=== PATIENT | male | born 1935 | race Caucasian/White ===

== ENCOUNTER 2019-03-12 13:06 | Inpatient (IN) | payer OTHER ==
[~2019-03-12] VITALS: Ht 180.3 cm; Wt 75.5 kg
[2019-03-12] MEDS ORDERED: LOPRESSOR50 PO (13:17)
[2019-03-12] MEDS ORDERED: COZAAR 25 MG TA25 M1 PO (13:17)
[2019-03-12] MEDS ORDERED: HYDROCHLOROTHIA25 M2 PO (13:17)
[2019-03-12 13:26] LABS: ABSOLUTE BASOPHILS 0.1 thou/uL (0.0-0.2); ABSOLUTE LYMPHOCYTES 1.1 thou/uL (0.8-5.3); ABSOLUTE MONOCYTES 0.9 thou/uL (0.0-1.2); ABSOLUTE NEUTROPHILS 15.5 thou/uL (1.6-8.1); BASOPHILS 0.4 %; HEMATOCRIT 41.9 % (42.0-52.0); HEMOGLOBIN 13.9 gm/dL (14.0-18.0); LYMPHOCYTES 6.3 %; MCH 29.5 pg (26.0-34.0); MCHC 33.2 g/dL (28.0-37.0); MONOCYTES 4.9 %; MPV 7.9 fl. (7.2-11.1); NUCLEATED RBCS 0 /100WBC; PLATELET COUNT* 390 thou/uL (150-400); POLYS 88.4 %; RBC 4.71 mil/uL (4.50-6.00); WBC 17.5 thou/uL (4.0-11.0)
[2019-03-12 13:39] LABS: APTT 30.1 Seconds (25.0-31.3); INR 1.1
[2019-03-12 13:40] LABS: CALCIUM 8.3 mg/dL (8.5-10.1); CREATININE 1.4 mg/dL (0.6-1.3); POTASSIUM 4.1 mmol/L (3.5-5.1)
[2019-03-12 13:54] LABS: ALBUMIN 2.5 g/dL (3.4-5.0); CK-MB MASS 3.2 ng/mL (<0.5-3.6); TOTAL BILIRUBIN 0.7 mg/dL (<0.1-1.0); TOTAL PROTEIN 6.1 g/dL (6.4-8.2)
[2019-03-12 13:55] LABS: TROPONIN-I LEVEL 0.73 ng/mL (<0.06)
[2019-03-12 15:02] VITALS: BP 81/48
[2019-03-12 20:00] VITALS: BP 130/70
[2019-03-13] VITALS (8 sets, daily range): BP systolic 104–147; BP diastolic 50–90
[2019-03-13 03:10] LABS: GLYCOHEMOGLOBIN (HGB A1C) 5.5 % (4.8-5.6)
[2019-03-13 05:11] LABS: ABSOLUTE LYMPHOCYTES 1.4 thou/uL (0.8-5.3); ABSOLUTE MONOCYTES 0.8 thou/uL (0.0-1.2); ABSOLUTE NEUTROPHILS 9.1 thou/uL (1.6-8.1); BASOPHILS 0.3 %; EOSINOPHILS 0.2 %; HEMATOCRIT 36.5 % (42.0-52.0); LYMPHOCYTES 12.4 %; MCH 29.6 pg (26.0-34.0); MCHC 32.9 g/dL (28.0-37.0); MCV 90.1 fL (80.0-100.0); MPV 8.1 fl. (7.2-11.1); NUCLEATED RBCS 0 /100WBC; POLYS 80.1 %; RBC 4.05 mil/uL (4.50-6.00); RDW-CV 12.8 % (10.5-14.5); WBC 11.4 thou/uL (4.0-11.0)
[2019-03-13 05:23] LABS: PLATELET COUNT* 278 thou/uL (150-400)
[2019-03-13 05:24] LABS: CREATININE 1.2 mg/dL (0.6-1.3); POTASSIUM 3.5 mmol/L (3.5-5.1)
[2019-03-13 05:38] LABS: URINE BILIRUBIN NEGATIVE (Negative); URINE BLOOD NEGATIVE (Negative); URINE CLARITY CLEAR; URINE COLOR YELLOW; URINE GLUCOSE-RANDOM NEGATIVE (Negative); URINE KETONES NEGATIVE (Negative); URINE LEUKOCYTES-REFLEX NEGATIVE (Negative); URINE NITRITE-REFLEX NEGATIVE (Negative); URINE PROTEIN TRACE (Negative); URINE SPECIFIC GRAVITY 1.025 (1.005-1.030)
[2019-03-13 13:25] LABS: ALBUMIN 2.2 g/dL (3.4-5.0); CALCIUM 8.4 mg/dL (8.5-10.1); CREATININE 1.1 mg/dL (0.6-1.3); TOTAL BILIRUBIN 0.4 mg/dL (<0.1-1.0); TOTAL PROTEIN 4.8 g/dL (6.4-8.2)
[2019-03-13 13:29] LABS: POTASSIUM 4.5 mmol/L (3.5-5.1)
[2019-03-14] VITALS (7 sets, daily range): BP systolic 114–160; BP diastolic 66–80
[2019-03-14 04:31] LABS: CHOLESTEROL 124 mg/dL (<200); HDL CHOLESTEROL 23 mg/dL (>40); LDL CHOLESTEROL 83 mg/dL (<100); TC:HDL 5.4 Ratio (Not establshd); TRIGLYCERIDE 94 mg/dL (<150); VLDL 19 mg/dL (<40)
[2019-03-14 04:54] LABS: SERUM ASSESSMENT CLEAR
--- NOTE | 2019-03-14 12:10 | CON ---
[address] [address] CONSULTATION Name: JOSE MRAIA MORRIS Room: [address] ADM IN M.R.#: [id number] Admission: 03/12/19 Attend Phys: Alexei Leger MD Discharge: Date of : 37 Report #: [id number] THIS REPORT FOR: //name// CC: Alexei Leger [facility] physician/PCP Ramos Jones DO DATE OF SERVICE: 03/13/2019 CARDIOLOGY CONSULTATION HISTORY OF PRESENT ILLNESS: The patient is an 83-year-old white male, who I was asked to see in the hospital today after he was noted to be in atrial fibrillation. The patient has no previous history of heart disease. He stays fairly active, working in the yard. He states he was doing well until yesterday morning after breakfast, he felt lightheaded, short of breath. His brought him to the Emergency Room. He was found to be in atrial fibrillation. He was given IV Cardizem and converted to sinus rhythm. I was asked to see him for further evaluation and treatment. He denies history of myocardial infarction or chest pain. He denies previous history of exertional dyspnea. He has noted irregular heartbeat in the past, but no syncope. Denied any history of heart murmur. He has had no swelling. Denied recent fever or cough. PAST MEDICAL HISTORY: He has had a previous tonsillectomy, has a history of hypertension. MEDICATIONS: Include losartan, metoprolol, and hydrochlorothiazide. ALLERGIES: He has no known drug allergies. FAMILY HISTORY: Negative for heart disease. SOCIAL HISTORY: He is . [place] Quit smoking years ago, rarely drinks alcohol. REVIEW OF SYSTEMS: He has had no history of stroke, asthma, peptic ulcer disease, liver disease, kidney disease, cancer, psychiatric illness, chronic skin condition. PHYSICAL EXAMINATION: GENERAL: Elderly male, lying in bed, appeared in no distress. VITAL SIGNS: He had a blood pressure of 110/60, pulse is 70, he was afebrile. HEENT: Anicteric. Conjunctivae pink. Mucous members moist. NECK: Veins nondistended. No carotid bruits. Neck is supple. CHEST: Clear to auscultation. HEART: [place] [address] CONSULTATION Name: JOSE MARIA MORRIS Room: [address]#: [id number] Admission: 03/12/19 Attend Phys: Alexei Leger MD Discharge: Date of : 37 Report #: [id number] ABDOMEN: Soft. EXTREMITIES: Had no edema. Posterior pulse 2+ bilaterally. SKIN: Cool and dry. NEUROLOGIC: Nonfocal. LYMPH: No adenopathy. MUSCULOSKELETAL: No joint effusion. LABORATORY DATA: ECG on admission yesterday showed atrial fibrillation, rapid ventricular response rate. Currently, he appears to be in a sinus rhythm. His workup, he had a portable chest x-ray in the Emergency Room yesterday that showed normal heart size, small granuloma in the left base. Sodium 142, creatinine 1.2, glucose 119. Liver function studies were normal. Albumin 2.5. His troponin was 0.96. TSH 1.1. White blood cell count 9.4, hemoglobin 12.0. IMPRESSION AND RECOMMENDATIONS: 1. Type 2 myocardial infarction. Recommend nuclear stress test. 2. Atrial fibrillation. I will start sotalol and Eliquis. 3. Hypertension. The patient has been on an ARB, diuretic, and beta jorge. <ELECTRONICALLY SIGNED> By: Benedict Whitlock MD, FACC 03/14/19 1210 0905 [id number] Whitlock MD, FACC /nt
--- NOTE | 2019-03-14 12:29 | CON ---
[address] [address] CONSULTATION Name: JOSE MARIA MORRIS Room: [address] ADM IN M.R.#: [id number] Admission: 03/12/19 Attend Phys: Alexei Leger MD Discharge: Date of : 37 Report #: [id number] THIS REPORT FOR: //name// CC: Alexei Leger [facility] physician/PCP DATE OF SERVICE: 03/13/2019 HISTORY OF PRESENT ILLNESS: This is an 83-year-old male patient whom I tried to see to look for any neurological etiology for the patient's dizziness. This patient is pretty reluctant historian. He does not think anything wrong with him. I tried to explain to him the reason for neurological consultation and reason to get some workup done. He told me very clearly that he does not want any further neurological workup done. REVIEW OF SYSTEMS: He is admitted with some dizziness, but he also underplays that he does have history of atrial fibrillation and that is being addressed. He does have a history of hypertension. This is all the 14-point review of systems I could carry out. PAST MEDICAL HISTORY: Positive for atrial fibrillation. FAMILY HISTORY: Unremarkable. SOCIAL HISTORY: He does not smoke or drink alcohol. PHYSICAL EXAMINATION: I tried to carry out the examination and this patient is alert, responsive, oriented and he is competent to make his decision. I did not see any focal neurological deficit on the limited examination he allowed. It would appear that this patient had dizziness. He does need neurological workup starting with the CT and may be more neurological workup to see if he is having some silent stroke and if any one of them is new. But he is pretty adamant that he does not want any neurological workup done. I called back Dr. Leger, his admitting physician, and discussed that with him. He is competent to make his decision. He knows the consequences of not listening to the medical advice, but he is pretty adamant that he does not want any neurological workup to be done. Therefore, no official consultation was done and I will sign off. Please call if the situation changes. <ELECTRONICALLY SIGNED> By: Jesus Maher MD 03/14/19 1229 1233 [id number] luis Maher MD /nt
--- NOTE | 2019-03-14 14:17 | 2DMMODE ---
[place] [address] 2 D/M-MODE ECHOCARDIOGRAM Name: JOSE MARIA MORRIS Room: [address] IN M.R.#: [id number] Admission: 03/12/19 Attend Phys: Alexei Leger, Discharge: Date of : 37 Date of Service: 03/14/19 1417 Report #: [id number] THIS REPORT FOR: //name// APPROVED REPORT Study performed: 03/14/2019 11:07:16 EXAM: Comprehensive 2D, Doppler, and color-flow Echocardiogram Patient Location: Bedside BSA: 1.93 HR: 64 bpm BP: 160/67 mmHg Other Information Study Quality: Fair Indications Atrial Fibrillation 2D Dimensions IVSd: 7.94 (7-11mm) LVOT Diam: 19.12 (18-24mm) LVDd: 41.98 mm PWd: 9.29 (7-11mm) Ascending Ao: 31.23 (22-36mm) LVDs: 28.91 (25-40mm) Aortic Root: 28.87 mm Volumes Left Atrial Volume (Systole) LA ESV Index: 22.70 mL/m2 Aortic Valve AoV Peak Niko.: 1.10 m/s AO Peak Gr.: 4.81 mmHg LVOT Max P.71 mmHg AO Mean Gr.: 2.98 mmHg LVOT Mean P.94 mmHg LVOT Max V: 0.65 m/s AO V2 VTI: 23.48 cm LVOT Mean V: 0.44 m/s JARED (VTI): 1.78 cm2 LVOT V1 VTI: 14.52 cm Mitral Valve E/A Ratio: 0.96 MV Decel. Time: 217.55 ms MV E Max Niko.: 0.53 m/s MV PHT: 63.09 ms MVA (PHT): 3.49 cm2 [place] [address] 2 D/M-MODE ECHOCARDIOGRAM Name: JOSE MARIA MORRIS Room: [address] IN M.R.#: [id number] Admission: 03/12/19 Attend Phys: Alexei Leger, Discharge: Date of : 36 Date of Service: 03/14/19 1417 Report #: [id number] TDI E/Lateral E': 7.57 E/Medial E': 8.83 Medial E' Niko.: 0.06 m/s Lateral E' Niko.: 0.07 m/s Pulmonary Valve PV Peak Niko.: 0.70 m/s PV Peak Gr.: 1.94 mmHg Tricuspid Valve RAP Estimate: 5.00 mmHg TR Peak Gr.: 19.02 mmHg RVSP: 24.02 mmHg PA Pressure: 24.02 mmHg Left Ventricle The left ventricle is normal size. There is normal LV segmental wall motion. There is normal left ventricular wall thickness. Left ventricular systolic function is normal. The left ventricular ejection fraction is within the normal range. LVEF is 60%. Grade I - abnormal relaxation pattern. Right Ventricle Right ventricle is borderline dilated. The right ventricular systolic function is normal. Atria The left atrium size is normal. Right atrium is mildly dilated. Aortic Valve The aortic valve is normal in structure. No aortic regurgitation is present. There is no aortic valvular stenosis. Mitral Valve The mitral valve is normal in structure. Trace mitral regurgitation. No evidence of mitral valve stenosis. Tricuspid Valve The tricuspid valve is normal in structure. Trace tricuspid regurgitation. Pulmonic Valve The pulmonary valve is normal in structure. There is no pulmonic valvular regurgitation. [place] [address] 2 D/M-MODE ECHOCARDIOGRAM Name: JOSE MARIA MORRIS Room: [address] IN [facility]#: [id number] Admission: 03/12/19 Attend Phys: Alexei Leger, Discharge: Date of : 37 Date of Service: 03/14/19 1417 Report #: [id number] The aortic root is normal in size. IVC is borderline dilated. Pericardium There is no pericardial effusion. <Conclusion> The left ventricle is normal size. There is normal left ventricular wall thickness. Left ventricular systolic function is normal. The left ventricular ejection fraction is within the normal range. LVEF is 60%. Grade I - abnormal relaxation pattern. Right ventricle is borderline dilated. The right ventricular systolic function is normal. The left atrium size is normal. Right atrium is mildly dilated. The aortic valve is normal in structure. The mitral valve is normal in structure. Trace mitral regurgitation. The tricuspid valve is normal in structure. IVC is borderline dilated. There is no pericardial effusion. There is normal LV segmental wall motion. <ELECTRONICALLY SIGNED> By: Orlando Fuentes MD, [facility] 03/14/19 1417 1417 141 Orlando Fuentes MD, FACC /INF
--- NOTE | 2019-03-14 14:42 | EKG ---
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 : 1935 Requested By: Roc Palacio Order Number: [id number] MD: Ray Roberts Measurements Intervals [place] Rate: 142 P: MT: QRS: -75 QRSD: 94 T: 47 QT: 284 QTc: 437 Interpretive Statements Atrial fibrillation with rapid V-rate Ventricular premature complex Abnormal R-wave progression, early transition Inferior infarct, old No previous ECG available for comparison Electronically Signed On 03-14-2019 14:42:25 CDT by Ray Roberts [email or web address] <ELECTRONICALLY SIGNED> By: Ray Roberts MD, [facility] 03/14/19 1442 1312 11 Ray Roberts MD, [facility] /EPI
--- NOTE | 2019-03-14 14:53 | EKG ---
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1935 Requested By: Benedict Whitlock Order Number: [id number] Norm MD: Ray Roberts Measurements Intervals [place] Rate: 67 P: 73 [place]: 141 QRS: -64 QRSD: 100 T: -33 QT: 521 QTc: 550 Interpretive Statements Sinus rhythm Atrial premature complex Inferior infarct, old Abnormal T, consider ischemia, anterior leads Prolonged QT interval No previous ECG available for comparison Electronically Signed On 03-14-2019 14:53:23 CDT by Ray Roberts [email or web address] <ELECTRONICALLY SIGNED> By: Ray Roberts MD, [facility] 03/14/19 1453 9 9 Ray Roberts MD, [facility] /EPI
[2019-03-15] VITALS: BP 138/72
[2019-03-15 04:00] VITALS: BP 151/79
[2019-03-15 07:48] VITALS: BP 147/70
[2019-03-15] MEDS ORDERED: CARDIZEM CD 18180 M3 PO (15:02)
[2019-03-15] MEDS ORDERED: ELIQUIS5 MG PO (15:02)
[2019-03-15] MEDS ORDERED: ASPIR 8181 MG PO (15:03)
[2019-03-15 15:06] VITALS: BP 147/70
--- NOTE | 2019-03-15 16:00 | CARDNUC ---
[place] [address] CARDIAC NUCLEAR IMAGING REPORT Name: JOSE MARIA MORRIS Room: [address] IN [facility]#: [id number] Admission: 03/12/19 Attend Phys: Alexei Leger, Discharge: Date of : 37 Date of Service: 03/15/19 1559 Report #: [id number] THIS REPORT FOR: //name// APPROVED REPORT Study performed: 03/14/2019 17:53:00 Indication: Dyspnea, Dizziness. Patient Location: In-Patient Room #: 224 Stress Tech: Bernadette Arzola Stress Nurse: Nata Andersen RN Ht: 5 ft 10 in Wt: 169 lbs BSA: 1.94 m2 BMI: 24.24 Medical History Medical History: Arrhythmia, Atrial Fibrillation, CAD s/p PA, Diabetes, Former Smoker, HTN, SOB, Weakness, Dizziness. Medications: Eliquis, ASA 81 mg, Cardizem, Hydralazine, Insulin, Home Meds include HCTZ, Losartan, Metoprolol. Allergies: No known drug allergies Cardiac Risk Factors: Age, Diabetes (non-insulin), HTN, SOB, Tobacco History (Former). Previous Cardiac Procedures: Myocardial infarction Pretest Chest Pain Characteristics: No chest pain Exercise History: Indeterminate Physical Disabilities: Generalized weakness, dizziness. Meds Held (24 hrs): None Resting Data Rest SPECT myocardial perfusion imaging was performed in supine position 30 minutes following the intravenous injection of 11.9 mCi of Tc-99m Sestamibi. Time of rest injection: 09:00 The images were gated to evaluate regional wall motion and calculate left ventricular ejection fraction. Administration Route: IV Administration Site: Right AC Pharmacologic Stress Pharmacologic stress test was performed by injecting Regadenoson 0.4 mg IV push over 10-15 seconds immediately followed by the intravenous injection of 29.8 mCi of Tc-99m Sestamibi. Time of stress injection: 10:50 [place] [address] CARDIAC NUCLEAR IMAGING REPORT Name: JOSE MARIA MORRIS Room: [address] IN [facility]#: [id number] Admission: 03/12/19 Attend Phys: Alexei Leger, Discharge: Date of : 37 Date of Service: 03/15/19 1559 Report #: [id number] Administration Route: IV Administration Site: Right AC Heart Rate at time of stress injection: 71 bpm. Gated Stress SPECT was performed 45 minutes after stress injection. The images were gated to evaluate regional wall motion and calculate left ventricular ejection fraction. Prone imaging was performed. Stress Test Details Stress Test: Pharmacologic stress testing performed using 0.4 mg of regadenoson per 5 mL given IV over 10 seconds. HR Max Heart Rate (APMHR): 138 bpm Resting HR: 66 bpm Target HR (85% APMHR): 117 bpm Max HR Achieved: 80 bpm % of APMHR: 57 Recovery HR: 71 bpm BP Resting BP: 138/68 mmHg Max BP: 142/51 mmHg Recovery BP: 140/61 mmHg ECG Resting ECG: sinus rhythm with nonspecific T-wave inversion diffusely. No significant ST segment changes. Stress ECG: sinus rhythm with nonspecific T-wave inversion diffusely. No significant ST segment changes. ST Change: None Arrhythmia: None Recovery ECG: sinus rhythm with nonspecific T-wave inversion diffusely. No significant ST segment changes. Recovery ST Change: None Recovery Arrhythmia: None Clinical Reason for Termination: Completed protocol Stress Symptoms: Lightheaded, Dizziness, Dyspnea Exercise duration: 00 min 00 sec Exercise capacity: 1.00 METs The patient tolerated Lexiscan infusion without significant cardiac symptoms. Nurse Comments 83 year old male inpatient tolerated sitting Lexiscan [place] [address] CARDIAC NUCLEAR IMAGING REPORT Name: JOSE MARIA MORRISNE Room: [address]#: [id number] Admission: 03/12/19 Attend Phys: Alexei Leger, Discharge: Date of : 37 Date of Service: 03/15/19 1559 Report #: [id number] unremarkable with PO caffeine, effective. Patient escorted via wheelchair by staff to Nuclear Medicine for images. Patient was stable with no complaints at this time. Stress ECG Conclusion The baseline EKG show sinus rhythm with diffuse T-wave inversion. EKGs obtained during and post Lexiscan infusion show sinus rhythm with no significant ST segment changes when compared to baseline. There were no stress-induced arrhythmias. Study Quality Study: Good Artifact: No artifact Study Data At rest, the left ventricular ejection fraction was 69%.. Post stress, the left ventricular ejection was 75%.. TID = 1.01. Perfusion Normal left ventricular perfusion. Wall Motion Normal left ventricular wall motion. Nuclear Conclusion ECG Findings: negative for ischemia Clinical Findings: negative for ischemia Nuclear Findings: negative for ischemia Exercise Capacity: not assessed Left Ventricular Function: normal Risk Study: low Myocardial perfusion images show no defect to suggest infarct or ischemia. Left ventricular systolic function appears normal on gated studies. This is a low risk study. <Conclusion> The baseline EKG show sinus rhythm with diffuse T-wave inversion. EKGs obtained during and post Lexiscan infusion show sinus rhythm with no significant ST segment changes when compared to baseline. There were no stress-induced arrhythmias. <ELECTRONICALLY SIGNED> By: Ray Roberts MD, [facility] 03/15/19 1559 1559 1559 Ray Roberts MD, FACC /INF
== END 2019-03-15 16:20 | disposition home or self-care (01) | DRG 280 ==
LOC: M.ERS 13:06 → M.TBA-ER 14:14 → M.2W 14:14
PROVIDERS: Family Medicine; Internal Medicine Cardiovascular Disease; ADMIT Internal Medicine
DX: I21.A1 Myocardial infarction type 2 (principal); R65.11 Systemic inflammatory response syndrome (SIRS) of non-infectious origin with acute organ dysfunction; N17.9 Acute kidney failure, unspecified; I48.91 Unspecified atrial fibrillation; J44.9 Chronic obstructive pulmonary disease, unspecified; N18.2 Chronic kidney disease, stage 2 (mild); Z79.899 Other long term (current) drug therapy

== ENCOUNTER 2019-05-06 10:09 | Emergency (ER) | payer OTHER ==
[~2019-05-06] VITALS: Ht 175.3 cm; Wt 68.0 kg
[~2019-05-06 10:09] MED LIST: ASPIR 8181 MG PO; CARDIZEM CD 18180 M3 PO; COZAAR 25 MG TA25 M1 PO; ELIQUIS5 MG PO; HYDROCHLOROTHIA25 M2 PO; LOPRESSOR50 PO
[2019-05-06 10:40] LABS: ABSOLUTE BASOPHILS 0.1 thou/uL (0.0-0.2); ABSOLUTE MONOCYTES 0.8 thou/uL (0.0-1.2); ABSOLUTE NEUTROPHILS 10.2 thou/uL (1.6-8.1); BASOPHILS 0.5 %; EOSINOPHILS 0.1 %; HEMATOCRIT 37.9 % (42.0-52.0); HEMOGLOBIN 12.2 gm/dL (14.0-18.0); LYMPHOCYTES 8.5 %; MCHC 32.3 g/dL (28.0-37.0); MCV 89.7 fL (80.0-100.0); MONOCYTES 6.5 %; MPV 7.9 fl. (7.2-11.1); NUCLEATED RBCS 0 /100WBC; PLATELET COUNT* 451 thou/uL (150-400); POLYS 84.4 %; RBC 4.23 mil/uL (4.50-6.00); RDW-CV 15.1 % (10.5-14.5); WBC 12.1 thou/uL (4.0-11.0)
[2019-05-06 10:48] LABS: ANION GAP 9 mmol/L (7-16); BUN 15 mg/dL (7-18); CHLORIDE 104 mmol/L (98-107); CO2 23 mmol/L (21-32); CREATININE 1.2 mg/dL (0.6-1.3); GLUCOSE 182 mg/dL (70-99); POTASSIUM 4.4 mmol/L (3.5-5.1); SODIUM 136 mmol/L (136-145)
[2019-05-06 10:58] LABS: ALBUMIN 2.2 g/dL (3.4-5.0); ALKALINE PHOSPHATASE 248 U/L (46-116); NT-PRO BRAIN NAT PEPTIDE 2415 pg/mL (<300); SGOT 24 U/L (15-37); SGPT 19 U/L (30-65); TOTAL BILIRUBIN 0.6 mg/dL (<0.1-1.0); TOTAL PROTEIN 5.4 g/dL (6.4-8.2); TROPONIN-I LEVEL <0.06 ng/mL (<0.06)
[2019-05-06] MEDS ORDERED: METOPROLOL SUC100 MG PO (11:55)
[2019-05-06 13:08] VITALS: BP 140/57
--- NOTE | 2019-05-06 20:14 | EKG ---
[place] [address] ELECTROCARDIOGRAM REPORT Name: ARTUROJOSE MARIAMELISSA COOL Room: [facility]#: [id number] Admission: 05/06/19 Attend Phys: Discharge: 05/06/19 Date of : 36 Report #: [id number] THIS REPORT FOR: //name// [facility] ED Test Date: 2019-05-06 Test Time: 10:15:29 Pat Name: JOSE MARIA MORRIS Department: Room: Gender: M [employer] Former: mateus : 1935 Requested By: Morro Hager Order Number: [id number] MD: Dexter Kay Measurements Intervals [place] Rate: 109 P: 62 [place]: 130 QRS: -61 QRSD: 92 T: 35 QT: 323 QTc: 436 Interpretive Statements Sinus tachycardia with irregular rate Inferior infarct, old Compared to ECG 03/14/2019 09:20:34 Sinus rhythm no longer present Atrial premature complex(es) are present T-wave abnormality no longer present Possible ischemia no longer present Prolonged QT interval no longer present Myocardial infarct finding still present Electronically Signed On 05-06-2019 20:13:48 CDT by Dexter Kay [email or web address] <ELECTRONICALLY SIGNED> By: Malinda Kay MD, [facility] 05/06/192012 1015 1015 Malinda Kay MD, [facility] /EPI
== END 2019-05-06 13:09 | disposition home or self-care (01) ==
LOC: M.ERS 10:09
PROVIDERS: Emergency Medicine Emergency Medical Services
DX: R00.2 Palpitations (principal); I10 Essential (primary) hypertension; I48.91 Unspecified atrial fibrillation

== ENCOUNTER 2019-05-27 10:29 | Emergency (ER) | payer OTHER ==
[~2019-05-27] VITALS: Ht 172.7 cm; Wt 68.0 kg
[~2019-05-27 10:29] MED LIST changes: +METOPROLOL SUC100 MG PO
[2019-05-27 11:04] LABS: ABSOLUTE LYMPHOCYTES 1.1 thou/uL (0.8-5.3); ABSOLUTE MONOCYTES 0.9 thou/uL (0.0-1.2); BASOPHILS 0.3 %; HEMOGLOBIN 11.4 gm/dL (14.0-18.0); LYMPHOCYTES 9.5 %; MCH 29.3 pg (26.0-34.0); MCHC 33.5 g/dL (28.0-37.0); MCV 87.4 fL (80.0-100.0); MONOCYTES 7.2 %; MPV 8.4 fl. (7.2-11.1); NUCLEATED RBCS 0 /100WBC; PLATELET COUNT* 390 thou/uL (150-400); RBC 3.89 mil/uL (4.50-6.00); RDW-CV 14.9 % (10.5-14.5)
[2019-05-27 11:13] LABS: CALCIUM 8.2 mg/dL (8.5-10.1); POTASSIUM 3.7 mmol/L (3.5-5.1)
[2019-05-27 11:18] LABS: ALBUMIN 1.9 g/dL (3.4-5.0); TOTAL BILIRUBIN 0.8 mg/dL (<0.1-1.0)
[2019-05-27] MEDS ORDERED: BENTYL 20 MG TA20 M1 PO (11:31)
[2019-05-27 11:50] VITALS: BP 140/60
== END 2019-05-27 12:03 | disposition home or self-care (01) ==
LOC: M.ERS 10:29
PROVIDERS: Emergency Medicine
DX: R19.7 Diarrhea, unspecified (principal); I10 Essential (primary) hypertension; I48.91 Unspecified atrial fibrillation

== ENCOUNTER 2019-06-14 20:15 | Inpatient (IN) | payer OTHER ==
[~2019-06-14] VITALS: Ht 172.7 cm; Wt 72.5 kg
--- NOTE | ~2019-06-14 | PROC ---
[address] [address] PROCEDURE REPORT Name: JOSE MARIA MORRIS Room: [address] ADM IN M.R.#: [id number] Admission: 06/14/19 Attend Phys: Vivek Bolaños MD Discharge: Date of : 36 Report #: [id number] THIS REPORT FOR: //name// For GI report, please see the Provation report in Perceptive 7 content. By: 0648Medical Records Staff KASSIDY /CAITLIN
[~2019-06-14 20:15] MED LIST changes: +BENTYL 20 MG TA20 M1 PO
[2019-06-14 20:26] VITALS: BP 100/43
[2019-06-14 20:54] LABS: HEMATOCRIT 37.5 % (42.0-52.0); HEMOGLOBIN 12.2 gm/dL (14.0-18.0); MCH 28.5 pg (26.0-34.0); MCHC 32.6 g/dL (28.0-37.0); MCV 87.4 fL (80.0-100.0); MPV 8.9 fl. (7.2-11.1); NUCLEATED RBCS 0 /100WBC; PLATELET COUNT* 345 thou/uL (150-400); RBC 4.29 mil/uL (4.50-6.00); RDW-CV 15.6 % (10.5-14.5); WBC 16.5 thou/uL (4.0-11.0)
[2019-06-14 21:04] LABS: CALCIUM 7.9 mg/dL (8.5-10.1); CREATININE 4.1 mg/dL (0.6-1.3); POTASSIUM 5.2 mmol/L (3.5-5.1)
[2019-06-14 21:15] LABS: ALBUMIN 1.7 g/dL (3.4-5.0); INR 1.9; PROTIME 19.5 Seconds (9.20-11.50); TOTAL BILIRUBIN 1.7 mg/dL (<0.1-1.0); TOTAL PROTEIN 5.1 g/dL (6.4-8.2); TROPONIN-I LEVEL 0.09 ng/mL (<0.06)
[2019-06-14 21:44] LABS: ABSOLUTE LYMPHOCYTES 0.7 thou/uL (0.8-5.3); ABSOLUTE NEUTROPHILS 15.8 thou/uL (1.6-8.1)
[2019-06-14 21:45] LABS: PLATELET ESTIMATE ADEQUATE
--- NOTE | 2019-06-14 22:00 | NUR ---
AED PADS PLACED PER DR BALTAZAR INSTRUCTIONS. DR ARRIAGA DISCUSSED WITH PT AND ABOUT THE POSSIBILITY OF HAVIGN TO CARDIOVERT, PT AGREED.
[2019-06-15] VITALS (69 sets, daily range): BP systolic 83–129; BP diastolic 29–60
--- NOTE | 2019-06-15 03:40 | NUR ---
SMALL, BLOODY EMESIS AT THIS TIME. ZOFRAN GIVEN FOR NAUSEA. PATIENT DENIES PAIN.
[2019-06-15 05:35] LABS: HEMATOCRIT 33.5 % (42.0-52.0); HEMOGLOBIN 10.6 gm/dL (14.0-18.0); MCH 27.6 pg (26.0-34.0); MCHC 31.7 g/dL (28.0-37.0); MPV 8.8 fl. (7.2-11.1); RBC 3.85 mil/uL (4.50-6.00); WBC 18.9 thou/uL (4.0-11.0)
[2019-06-15 06:07] LABS: CALCIUM 7.3 mg/dL (8.5-10.1); CREATININE 3.3 mg/dL (0.6-1.3); MAGNESIUM 2.5 mg/dL (1.8-2.4); POTASSIUM 4.7 mmol/L (3.5-5.1)
--- NOTE | 2019-06-15 06:09 | NUR ---
PATIENT A$OX4, DENIES PAIN. BLOODY EMESIS X2, SMALL-MODERATE AMOUNT. UOP 30CC PER URINAL, NO BM THIS EVENING. HR IN 130s, SOMETIMES 140s, SINUS TACH PER EKG. LOWEST MAP 56, MAP >65 ONCE CARDIZEM GTT STOPPED, LEVO ON STANDBY PRN. PT ON 2L WITH SPO2 >95% ON ARRIVAL, NOW ON 5L WITH SPO2 90-92%. EDEMA TO LOWER EXTREMITIES, WORSE ON LEFT FOOT/ANKLE. SMALL NON-BLANCHABLE WOUND TO COCCYX ON ARRIVAL, PICTURE IN CHART, Q2 TURNS FOR SKIN INTEGRITY.
[2019-06-15] MEDS ORDERED: TOPROL XL100 MG PO (07:19)
[2019-06-15 07:51] LABS: URINE BLOOD 2+ (Negative); URINE CLARITY CLEAR; URINE COLOR BROWN; URINE GLUCOSE-RANDOM NEGATIVE (Negative); URINE KETONES NEGATIVE (Negative); URINE LEUKOCYTES-REFLEX NEGATIVE (Negative); URINE NITRITE-REFLEX NEGATIVE (Negative); URINE PROTEIN TRACE (Negative); URINE SPECIFIC GRAVITY >= 1.030 (1.005-1.030)
[2019-06-15 07:55] LABS: PROTIME 19.6 Seconds (9.20-11.50)
[2019-06-15 08:07] LABS: ICTOTEST (BILI CONFIRMATORY) Negative (Negative); URINE BILIRUBIN 1+ (Negative)
[2019-06-15 08:11] LABS: BACTERIA-REFLEX 1-9 Few /HPF (None Seen); SQUAMOUS >10 Many /LPF (0-3); URINE RBC 3-10 Few /HPF (0-2); URINE WBC-REFLEX 0-5 Rare /HPF (0-5)
[2019-06-15 08:12] LABS: HYALINE CASTS >10 Many /LPF (None Seen); MUCUS >6 Heavy strn/LPF (None Seen); WAXY CAST 0-3 Few /LPF (None Seen)
[2019-06-15 08:13] LABS: AMORPHOUS URATES Moderate /LPF (None Seen)
[2019-06-15 08:17] LABS: DIRECT BILIRUBIN 1.3 mg/dL (<0.1-0.3); TOTAL BILIRUBIN 1.6 mg/dL (<0.1-1.0)
--- NOTE | 2019-06-15 10:28 | EKG ---
[place] [address] ELECTROCARDIOGRAM REPORT Name: ARTUROJOSE MARIA SILVINA Room: [address] ADM IN M.R.#: [id number] Admission: 06/14/19 Attend Phys: Vivek Bolaños MD Discharge: Date of : 37 Report #: [id number] THIS REPORT FOR: //name// [facility] ED Test Date: 2019-06-14 Test Time: 20:24:13 Pat Name: JOSE MARIA MORRIS Department: Room: [address] Gender: M [place] [employer] Justice: : 1935 Requested By: Vivek Bolaños Order Number: [id number] Norm MD: Benedict Whitlock Measurements Intervals [place] Rate: 165 P: GA: QRS: 260 QRSD: 91 T: QT: 301 QTc: 499 Interpretive Statements Atrial fibrillation with rapid V-rate low voltage Consider inferior infarct Anterolateral infarct, age indeterminate Compared to ECG 05/06/2019 10:15:29 Sinus tachycardia no longer present Myocardial infarct finding still present Electronically Signed On 06-15-2019 10:28:22 CDT by Benedict Whitlock [email or web address] <ELECTRONICALLY SIGNED> By: Benedict Whitlock MD, [facility] 06/15/19 1028 23 23 Benedict Whitlock MD, [facility] /EPI
--- NOTE | 2019-06-15 10:32 | EKG ---
[place] [address] ELECTROCARDIOGRAM REPORT Name: JOSE MARIA MORRIS Room: [address] ADM IN M.R.#: [id number] Admission: 06/14/19 Attend Phys: Vivek Bolaños MD Discharge: Date of : 37 Report #: [id number] THIS REPORT FOR: //name// [facility] ED Test Date: 2019-06-14 Test Time: 22:25:34 Pat Name: JOSE MARIA MORRIS Department: Room: [facility] Gender: M [place]: AW : 1935 Requested By: Paola Carney Order Number: [id number] MD: Benedict Whitlock Measurements Intervals [place] Rate: 132 P: 0 [place]: QRS: -78 QRSD: 75 T: 267 QT: 225 QTc: 334 Interpretive Statements atrial fibrillation low voltage Abnormal R-wave progression, early transition Inferior infarct, age indeterminate Lead(s) aVR were not used for morphology analysis Electronically Signed On 06-15-2019 10:31:51 CDT by Benedict Whitlock [email or web address] <ELECTRONICALLY SIGNED> By: Benedict Whitlock MD, [facility] 06/15/19 1031 24 24 Benedict Whitlock MD, [facility] /EPI
--- NOTE | 2019-06-15 10:45 | NUR ---
PT.SLEEPING. SPOKE WITH PT.'S ,STUART. SHE SAID PT.HAD BEEN DOING OK UP UNTIL MARCH. HAS CHRONIC AFIB. SEES DR.ALLISON ROGEL FOR HIS PCP AND [facility]. WAS INDEPENDENT AT HOME. NO USE OF DME. WAS ABLE TO DO YARD WORK UP UNTIL ABOUT 6 WEEKS AGO. HAS GOTTEN VERY WEAK SINCE THEN. SAID SHE HAS A CANE AND WALKER HE CAN USE IF NEEDED. NO HX OF HH OR SNF.
[2019-06-15 12:08] LABS: HEMATOCRIT 31.4 % (42.0-52.0); HEMOGLOBIN 10.3 gm/dL (14.0-18.0)
[2019-06-15 12:15] LABS: AMMONIA 22 umol/L (11-32); LIPASE 22 U/L (73-393)
--- NOTE | 2019-06-15 14:08 | CON ---
[address] [address] CONSULTATION Name: ARTUROJOSE MARIA COOL Room: [address] ADM IN M.R.#: [id number] Admission: 06/14/19 Attend Phys: Vivek Bolaños MD Discharge: Date of : 36 Report #: [id number] THIS REPORT FOR: //name// CC: Eva Bolaños DATE OF SERVICE: 06/15/2019 CARDIOLOGY CONSULTATION HISTORY OF PRESENT ILLNESS: The patient is an 83-year-old white male who I was asked to see in the hospital today after he was noted to be in atrial fibrillation. The history was obtained from the old records as well as the patient. There are no family members available. He was actually admitted here to [facility] in 02/2019 with lightheadedness. He was found to be in atrial fibrillation. He had a long history of hypertension. I actually saw him in consultation at that time. He had been on losartan, metoprolol, and hydrochlorothiazide for hypertension. He converted to sinus rhythm. He was started on sotalol, but developed QT prolongation and was taken off of sotalol. He was started on diltiazem and Eliquis. His workup included an echocardiogram in February that showed ejection fraction of 60% and no significant valvular disease. He actually underwent a nuclear stress test because of an abnormal troponin that showed ejection fraction of 75% with normal perfusion. The patient presented to the Emergency Room last night complaining of being weak and short of breath. He has had edema and loose stools. Paramedics were called, and he was brought here to [facility]. On admission, he had an episode of atrial fibrillation with rapid ventricular response rate. He was started on IV diltiazem, but developed hypotension. He was given IV digoxin. He denies recent chest pain, fever, or cough. PAST MEDICAL HISTORY: Otherwise significant for tonsillectomy. He has a history of hypertension. ALLERGIES: He has no known drug allergies. FAMILY HISTORY: Negative for heart disease. SOCIAL HISTORY: He is . He and his live in [place]. He quit smoking years ago and rarely drinks alcohol. 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 REVIEW OF SYSTEMS: No history of stroke, asthma, peptic ulcer disease, liver disease, kidney disease, cancer, psychiatric illness, and chronic skin condition. MEDICATIONS: His medications on admission consisted of losartan, Eliquis, [place] [address] CONSULTATION Name: JOSE MARIA MORRIS Room: [address] IN [facility]#: [id number] Admission: 06/14/19 Attend Phys: Vivek Bolaños MD Discharge: Date of : 36 Report #: [id number] PHYSICAL EXAMINATION: GENERAL: Revealed an elderly male, lying in bed. He appeared in no acute distress. VITAL SIGNS: Blood pressure is only 160s. Pulse is 80. HEENT: He was anicteric. Conjunctivae are pink. Mucous membranes appear moist. NECK: Neck veins do not appear distended. CHEST: Clear to auscultation. CARDIOVASCULAR: Regular rate and rhythm. ABDOMEN: Soft. EXTREMITIES: Had 1+ edema. SKIN: Cool and dry. NEUROLOGIC: Nonfocal. DIAGNOSTIC DATA: His ECG on admission actually showed a sinus rhythm. However, during the night, he developed atrial fibrillation with rapid ventricular response rate. His 12-lead ECG showed atrial fibrillation with rapid ventricular response rate and low voltage. The rhythm strips appeared to show atrial flutter with a rapid ventricular response. His workup last night, he had a portable chest x-ray done in the Emergency Room last night that showed left pleural effusion, possible atelectasis versus infiltrate. LABORATORY DATA: He had lab work. Sodium 140, BUN 78, and creatinine 3.3 and it was actually 4.1 on admission. His creatinine in February was 1.1. Glucose 148. His bilirubin 1.7. Albumin is 1.7. Total protein 5.1. Troponin 0.2, last summer it actually increased to 0.93. BNP 9995. TSH 3.8. White blood cell count 18.9 and hemoglobin 10.6. IMPRESSION AND RECOMMENDATIONS: 1. Paroxysmal atrial fibrillation. Previously developed prolongation of the QT on sotalol. At this time, I would recommend starting amiodarone. 2. History of hypertension. I would hold ARB because of his low blood pressure. 3. Acute kidney failure. 4. Protein malnutrition. 5. Anemia. No history of bleeding. <ELECTRONICALLY SIGNED> By: Benedict Whitlock MD, FACC 06/15/19 1408 0815 [id number] Whitlock MD, FACC /nt
--- NOTE | 2019-06-15 14:13 | NUR ---
RIGHT BASILIC VESSEL ACCESSED FOR 5 LUXEMBOURGER DUAL LUMEN PICC. LINE PRE-TRIMMED TO 38 CM AND ADVANCED TO THE ZERO VI WITH NO RESISTANCE MET. UPPER ARM CIRCUMFERENCE ABOVE INSERTION SITE= 9". SHERLOCK MAGNET AND 3CG CONFIRMATION OF TIP TERMINATION AT THE CAVOATRIAL JUNCTION APPRECIATED. STYLET REMOVED, LINE FLUSHED AND INSERTION SITE DRESSED. REPORT GIVEN TO JIMMY STARK.
--- NOTE | 2019-06-15 16:32 | NUR ---
ASSUMED CARE OF PT THIS AM AROUND 0730. REFER TO ASSESSMENTS. ABLE TO TITRATE OXYGEN FROM 7L/NC TO 4L/NC AT THIS TIME. COMPLETED CT SCAN ABDOMEN THIS SHIFT. REFER TO RESULTS. GI CONSULTED, ANTICIPATE EGD TOMORROW. ONCOLOGY CONSULTED AND AT BEDSIDE AT THIS TIME. PICC PLACED. STARTED LEVOPHED TODAY TO MAINTAIN MAPS >60. HIDALGO PLACED THIS SHIFT. REQUIRED COUDE CATHETER FOR PLACEMENT. NEPHROLOGY CONSULTED THIS SHIFT. NEW ORDERS OBTAINED. CARDIOLOGY CONSULTED TODAY. STARTED PO AMIODARONE WITH DIRECTIONS FROM CARDIOLOGY TO GIVE DESPITE BLOOD PRESSURES. PT SR TO ST WITH EPISODES OF AFIB TODAY. NOTED TO BE IN AFIB AT THIS TIME WITH CONTROLLED RATE. PROTONIX GTT CONTINUES TO INFUSE. TOLERATING CLEAR LIQUID DIET. NO FURTHER EPISODES OF EMESIS THIS SHIFT. NO OTHER CONCERNS AT THIS TIME. CLWR. WCTM.
[2019-06-15 16:41] LABS: BE -11.6 mmol/L (-2 to +3); PCO2 VENOUS 27.5 mmHg (41.0-51.0); PO2 VENOUS 68.7 mmHg (35.0-45.0)
--- NOTE | 2019-06-15 16:54 | NUR ---
REPORT GIVEN TO AMIRA STARK AT THIS TIME.
[2019-06-15 21:19] LABS: HEMATOCRIT 27.5 % (42.0-52.0)
[2019-06-16] VITALS (80 sets, daily range): BP systolic 102–134; BP diastolic 33–60
--- NOTE | 2019-06-16 05:15 | NUR ---
LEVO GTT UP FROM 5 MCG/MIN TO 10 MCG/MIN THROUGH THE NIGHT. SINUS TACH ON THE MONITOR. ON 4L PER NC, AFEBRILE. PT A$OX4 AND AROUSABLE, BUT MORE LETHARGIC AND SLEEPING THROUGH THE NIGHT COMPARED TO LAST NIGHT. DENIES PAIN, NAUSEA. NO EMESIS/BM THIS EVENING. PT COMFORTABLE IN SEMI-FOWLERS POSITION AND REFUSES TO TURN AFTER MIDNIGHT. EDUCATION PROVIDED.
[2019-06-16 06:46] LABS: HEMATOCRIT 23.2 % (42.0-52.0); HEMOGLOBIN 7.6 gm/dL (14.0-18.0); MCH 28.5 pg (26.0-34.0); MCHC 32.8 g/dL (28.0-37.0); MCV 86.9 fL (80.0-100.0); MPV 8.9 fl. (7.2-11.1); RBC 2.67 mil/uL (4.50-6.00); RDW-CV 15.4 % (10.5-14.5); WBC 19.5 thou/uL (4.0-11.0)
[2019-06-16 06:52] LABS: INR 1.8
[2019-06-16 06:53] LABS: ALBUMIN 2.4 g/dL (3.4-5.0); CALCIUM 7.1 mg/dL (8.5-10.1); CREATININE 3.7 mg/dL (0.6-1.3); MAGNESIUM 2.3 mg/dL (1.8-2.4); PHOSPHORUS* 4.9 mg/dL (2.5-4.9); POTASSIUM 4.9 mmol/L (3.5-5.1)
[2019-06-16 07:02] LABS: ALBUMIN 2.4 g/dL (3.4-5.0); CALCIUM 6.8 mg/dL (8.5-10.1); CREATININE 3.7 mg/dL (0.6-1.3); MAGNESIUM 2.4 mg/dL (1.8-2.4); TOTAL BILIRUBIN 2.3 mg/dL (<0.1-1.0); TOTAL PROTEIN 4.1 g/dL (6.4-8.2)
[2019-06-16 08:07] LABS: HEPATITIS B SURFACE AG Negative (Negative)
--- NOTE | 2019-06-16 16:19 | NUR ---
AT BEDSIDE. SHE HAD NO QUESTIONS AT THIS TIME. SHE SAID THE NURSES AND HAVE BEEN VERY GOOD ABOUT EXPLAINING THINGS TO HER. CM WILL FOLLOW.
--- NOTE | 2019-06-16 17:20 | EKG ---
[place] [address] ELECTROCARDIOGRAM REPORT Name: JOSE MARIA MORRIS Room: [address] ADM IN M.R.#: [id number] Admission: 06/14/19 Attend Phys: Vivek Bolaños MD Discharge: Date of : 36 Report #: [id number] THIS REPORT FOR: //name// [facility] Test Date: 2019-06-16 Test Time: 08:23:55 Pat Name: JOSE MARIA MORRIS Department: Room: [address] Gender: M Table Operator: : 1935 Requested By: Benedict Whitlock Order Number: [id number] Norm MD: Ray Roberts Measurements Intervals [place] Rate: 114 P: 78 [place]: 164 QRS: -30 QRSD: 74 T: 102 QT: 463 QTc: 638 Interpretive Statements Sinus tachycardia Left axis deviation Low voltage, diffusely Borderline repolarization abnormality Prolonged QT interval Lead(s) aVR,aVF were not used for morphology analysis Compared to ECG 06/15/2019 05:34:17 Left-axis deviation now present Prolonged QT interval now present Atrial fibrillation no longer present Electronically Signed On 06-16-2019 17:20:19 CDT by Ray Roberts [email or web address] <ELECTRONICALLY SIGNED> By: Ray Roberts MD, FACC 06/16/19 1720 2 2 Ray Roberts MD, FACC /EPI
--- NOTE | 2019-06-16 18:45 | CON ---
[address] [address] CONSULTATION Name: JOSE MARIA MORRIS Room: [address] IN M.R.#: [id number] Admission: 06/14/19 Attend Phys: Vivek Bolaños MD Discharge: Date of : 36 Report #: [id number] THIS REPORT FOR: //name// CC: Eva Bolaños DATE OF SERVICE: 06/15/2019 DIAGNOSIS: Liver metastases. SUBJECTIVE: An 83-year-old male who presented because of generalized weakness and weight loss in the last few months around 30 pounds. The patient was found to be in AFib with RVR. He previously was on Eliquis at home. He developed hemoptysis and he became hypotensive. The patient reported that prior to this visit, he has been living independently with his . He never had a colonoscopy before. The patient denies any blood in the stool. REVIEW OF SYSTEMS: All systems reviewed. It was negative except the above. PAST MEDICAL HISTORY: AFib, coronary artery disease, and hypertension. MEDICATIONS: Per admission list. ALLERGIES: No known allergies. FAMILY HISTORY: No family history of malignancy or colon cancer. SOCIAL HISTORY: He is a former smoker. He used to smoke 1 pack per day. PHYSICAL EXAMINATION: VITAL SIGNS: Today, temperature is 36.4, pulse is 137, respirations 22, blood pressure is 103/49, SpO2 was 93% on 4 liters. GENERAL: The patient was lying in bed. He looked tired LUNGS: Decreased breathing sounds bilaterally. HEART: Irregular irregularity. S1, S2 within normal limits. ABDOMEN: Soft, nontender. EXTREMITIES: No edema, no cyanosis, no clubbing. IMAGING: A CT of the abdomen showed bilateral pleural effusion. Numerous nodular masses throughout the liver, numerous gallbladder calcification. Addendum was created at the proximal transverse colon, a poorly defined soft tissue measuring 5 cm in diameter. LABORATORY DATA: WBC 18.9, hemoglobin 10.3, platelets 280. PT is 19.6, fibrinogen 367. INR is 2.0. Sodium is 140, creatinine is 3.3, lactic acid 2.6, calcium 7.3, ferritin 110, bilirubin is 1.6, AST 177, [place] 69[place] [address] CONSULTATION Name: JOSE MARIA MORRIS Room: [address] IN [facility]#: [id number] Admission: 06/14/19 Attend Phys: Vivek Bolaños MD Discharge: Date of : 36 Report #: [id number] ASSESSMENT AND PLAN: An 83-year-old male who had multiple medical issues. However, he was living independently before coming to the hospital, presented with weakness, GI bleeding and his imaging is consistent with primary proximal colon mass with liver metastases and pleural effusion. RECOMMENDATIONS: 1. At this point, agree with current supportive care, stabilizing the patient. 2. The patient will have an EGD in a.m. 3. I would like to order routinely a CT scan noncontrast to assess his pleural effusion and assess if the patient will benefit from thoracocentesis. 4. Also, we will ask IR to obtain a liver biopsy when the patient is more stabilized. We will obtain a CEA. <ELECTRONICALLY SIGNED> By: Michael Iniguez MD 06/16/19 1845 1646 1820Michael Iniguez MD /nt
--- NOTE | 2019-06-16 19:12 | NUR ---
PT BACK FROM EGD AT 1635, VSS. LEVOPHED TITRATED DOWN TO 4 MCG/MIN. PT A&O. OCTREOTIDE DC'd. PT ON LIQUID DIET NOW. Q2 TURNS AND ORAL CARE GIVEN. PROTONIX DRIP CONTD AT 8MG/HR. IVF AT 50 MLS/HR.
--- NOTE | 2019-06-16 21:17 | NUR ---
PT. TAKES PILLS WHOLE VERY SLOWLY AND WITH SOME DIFFICULTY. WOULD RECOMMEND CRUSHING MEDICATIONS OR SPLITTING PILLS IN HALF.
[2019-06-17] VITALS (43 sets, daily range): BP systolic 70–130; BP diastolic 15–56
--- NOTE | 2019-06-17 00:15 | NUR ---
RECIEVED REPORT AND ASSUMED CARE OF PT.
--- NOTE | 2019-06-17 06:06 | NUR ---
REPORT GIVEN TO Manuela SERRANO RN AT 0100. CARE RESUMED BY THIS RN AT THIS TIME.
[2019-06-17 06:38] LABS: HEMATOCRIT 30.7 % (42.0-52.0)
[2019-06-17 06:39] LABS: HEMOGLOBIN 9.9 gm/dL (14.0-18.0)
[2019-06-17 06:45] LABS: CALCIUM 7.3 mg/dL (8.5-10.1); CREATININE 3.8 mg/dL (0.6-1.3); POTASSIUM 4.7 mmol/L (3.5-5.1)
--- NOTE | 2019-06-17 10:55 | NUR ---
ICU rounds: Pt not doing well today, Cxr looked worse this morning. Requiring increased o2, may need bipap. Continue levo gtt. EGD completed yesterday. Dr to speak with family today to determine how aggressive family wants to be. Hospice consult pending Drs conversation with family.
--- NOTE | 2019-06-17 12:00 | NUR ---
PT TACHYPNEIC, SPO2 88-92% IN NON REBREATHER MASK. PT LESS RESPONSIVE. LEVOPHED TO MAX, BIPAP ORDERED BY PROVIDER.
--- NOTE | 2019-06-17 13:08 | NUR ---
PROVIDER AND FAMILY DISCUSSED TO MAKE HIM COMFORT CARE.
--- NOTE | 2019-06-17 14:18 | EKG ---
[place] [address] ELECTROCARDIOGRAM REPORT Name: JOSE MARIA MORRIS Room: [address] ADM IN M.R.#: [id number] Admission: 06/14/19 Attend Phys: Vivek Bolaños MD Discharge: Date of : 36 Report #: [id number] THIS REPORT FOR: //name// 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 : 1935 Requested By: Benedict Whitlock Order Number: [id number] Norm MD: Benedict Whitlock Measurements Intervals [place] Rate: 117 P: 57 SD: 172 QRS: -51 QRSD: 77 T: 175 QT: 271 QTc: 378 Interpretive Statements Sinus tachycardia Atrial premature complexes Inferior infarct, old Anterior infarct, age indeterminate Compared to ECG 06/16/2019 08:23:55 Atrial premature complex(es) now present Myocardial infarct finding now present Prolonged QT interval no longer present Electronically Signed On 06-17-2019 14:18:14 CDT by Benedict Whitlock [email or web address] <ELECTRONICALLY SIGNED> By: Benedict Whitlock MD, FACC 06/17/19 1418 1055 1055 Benedict Whitlock MD, [facility] /EPI
--- NOTE | 2019-06-17 15:19 | NUR ---
PT DECLARED AT 1356. [facility] CALLED AND THEY CLEARED HIM OFF. PROVIDER, NURSING SENIOR MATERIALS PLANNER AND ALL THE CONSULTS NOTIFIED. PT'S BELONGINGS HANDED OVER TO THE FAMILY. ALL LINES OUT AND PT CLEANED AND WRAPPED IN A BAG. HOME CALLED.
--- NOTE | 2019-06-20 10:18 | CON ---
[address] [address] CONSULTATION Name: JOSE MARIA MORRIS Room: [address] IN M.R.#: [id number] Admission: 06/14/19 Attend Phys: Vivek Bolaños MD Discharge: 06/17/19 Date of : 36 Report #: [id number] THIS REPORT FOR: //name// CC: Eva Bolaños DATE OF SERVICE: 06/15/2019 CONSULTING PHYSICIAN: Dr. Bolaños. HISTORY OF PRESENT ILLNESS: An 83-year-old gentleman who I am asked to see for acute kidney injury. He was admitted with weakness. He has had a 17-pound unexpected weight loss and was found to have an elevated creatinine of 4.1 on admission. He denies any previous known history of kidney disease. He had low blood pressures on admission and concern for possible pneumonia. He was started on antibiotics. He is on a Levophed drip. He was also found to be in AFib with RVR, was started on a diltiazem drip and is on Eliquis as an outpatient for chronic AFib, presently appears to be comfortable, does not really have any complaints. REVIEW OF SYSTEMS: Constitutional, psych, heme, eyes, ENT, respiratory, cardiac, GI, , endocrine, all negative except as documented above. PAST MEDICAL HISTORY: Hypertension, AFib, history of non-ST elevation [place]. SOCIAL HISTORY: Positive history of tobacco use. FAMILY HISTORY: Nonpertinent in 83-year-old gentleman. MEDICATIONS: Reviewed. PHYSICAL EXAMINATION: VITAL SIGNS: Blood pressure 103/49, respirations 22, pulse 136, temperature 36.4. GENERAL: No acute distress. EYES: Open. EARS: Externally normal. NECK: Supple. CARDIOVASCULAR: Tachycardic. LUNGS: Diminished breath sounds. ABDOMEN: Soft. MUSCULOSKELETAL: Nontender. PSYCHIATRIC: Awake, alert. LABORATORY DATA: White cell count 18.9, hemoglobin 10.6, platelets 280. Sodium 140, potassium 4.7, chloride 107, bicarbonate 14, BUN 78, creatinine 3.3, [place] [address] CONSULTATION Name: JOSE MARIA MORRIS Room: [address]#: [id number] Admission: 06/14/19 Attend Phys: Vivek Bolaños MD Discharge: 06/17/19 Date of : 36 Report #: [id number] glucose 148, calcium 7.3, magnesium 2.5. ASSESSMENT: 1. Acute kidney injury with a component of volume depletion and possible acute tubular necrosis in the setting of hypotension and shock. UA noted. CT scan did not reveal any acute involvement of the kidneys. Admission creatinine was 4.1. On 05/27/2019, creatinine was 1. 2. Unexplained weight loss with evidence of liver metastases on CT scan of the abdomen. 3. Anasarca with peripheral edema. 4. Metabolic/lactic acidosis. 5. Hematuria. 6. Hypoalbuminemia with an albumin of 1.7. 7. Chronic kidney disease, stage unclear. This is based on the finding of cortical thinning on CT scan. 8. Atrial fibrillation with rapid ventricular response. 9. Shock. 10. Hematemesis. 11. Pneumonia. PLAN: 1. Discontinue milk of magnesia. 2. Currently on 4 mcg of Levophed. 3. H and H monitoring per Internal Medicine. 4. We will administer albumin. 5. Creatinine is trending in the right direction. 6. We will defer workup of liver mets to primary service. 7. Check blood gas to better assess acid base status and possible need for bicarbonate. Prognosis overall is guarded. We will follow along closely with you. Thank you for requesting my opinion in the care and management of this patient. <ELECTRONICALLY SIGNED> By: Nahed Schumacher MD 06/20/19 1018 1446 1502Abieli Schumacher MD /nt
--- NOTE | 2019-06-20 13:47 | PATH ---
[facility] [address] [place] [address] PATHOLOGY RPT PROCEDURE Name: ROBERT CRUMP Room: [address] IN M.R.#: [id number] Admission: 06/14/19 Date of : 37 Discharge: 06/17/19 Report #: [id number] Path Case #: [id number] [facility] Accession Number: [id number] . 01 Material submitted: . PART A: stomach - BIOPSIES OF STOMACH FOR GASTRITIS PART B: esophagus - BIOPSIES OF ESOPHAGEAL ULCERS . 01 Clinical history: . A. For gastritis . 02 Diagnosis: A. Biopsies of stomach: - Mild nonspecific chronic gastritis, negative for Helicobacter pylori organisms and dysplasia. . B. Biopsies of esophageal ulcers: - Fibrinoinflammatory/necrotic debris in association with minimal benign and inflamed stroma, negative for granulomas and diagnostic viral inclusions. See comment. (SAURABH:skip; 06/20/2019) QMS 06/20/2019 1114 Local . 02 Comment: There is no recognizable epithelial tissue in the esophageal ulcers biopsy (B). . (SAURABH:skip; 06/20/2019) . . Special stain on A: H. pylori immuno . 02 Electronically signed: . Ananth Win MD, Pathologist NPI- [id number] . 01 Gross description: . A. The specimen is received in formalin, labeled "Robert Crump, biopsies of stomach" and consists of multiple fragments of soft ramirez tissue measuring 1.0 x 0.3 x 0.2 cm in aggregate which are entirely submitted in A1. . B. The specimen is received in formalin, labeled "Robert Crump, biopsies of esophageal ulcers" and consists of 3 fragments of ramirez tissue measuring between 0.1 x 0.1 cm and 0.3 x 0.2 x 0.2 cm. Due to the nature of the 2 smaller fragments they may not survive processing. They are entirely submitted in B1. (SD; 06/17/2019) [place] [address] PATHOLOGY RPT PROCEDURE Name: ARTUROROBERT Room: [address] IN .R.#: [id number] Admission: 06/14/19 Date of : 37 Discharge: 06/17/19 Report #: [id number] Path Case #: [id number] SYU/SYU 06/17/2019 [facility] Local . 02 Pathologist provided ICD-10: K29.50, K20.9 . 02 CPT . 112568, 773679, O79281 Specimen Comment: A courtesy copy of this report has been sent to Specimen Comment: [phone], , . Specimen Comment: Report sent to ,DR DIANE / DR ROGEL Performed at: [address], [place], [place] [id number] MD Gage Thomas MD Phone: [phone] Performed at: 02 [facility] [address], [place], [place] [id number] MD Ananth Win MD Phone: [phone]
--- NOTE | 2019-07-01 14:47 | CON ---
[address] [address] CONSULTATION Name: JOSE MARIA MORRIS Room: [address] IN M.R.#: [id number] Admission: 06/14/19 Attend Phys: Vivek Bolaños MD Discharge: 06/17/19 Date of : 37 Report #: [id number] THIS REPORT FOR: //name// CC: MD Vivek Wren DICTATED BY: Cora Hawkins [facility] DATE OF SERVICE: 06/16/2019 Please note at the time of this dictation, the patient was seen and physically examined by myself. REASON FOR CONSULTATION: Hematemesis. HISTORY OF PRESENT ILLNESS: This is an 83-year-old male, who presented to the Emergency Room with increased weight loss of approximately 20 pounds since March, abdominal discomfort, overall weakness and then when he was seen in the ICU, he did have some hematemesis. The patient denies any NSAID use or any alcohol use. He denies of any acid reflux symptoms or any epigastric discomfort at this time. He states he does not have any difficulty swallowing; however, since March, he has had somewhat of a decreased appetite, not much of wanting to eat or having significant discomfort. At that time, the patient also noted a change in his bowel habits that he has been having diarrhea since March. Prior to that, he was having a soft formed bowel movement on a daily basis. He denies any bright red blood or any melanotic stool at this time. states that on Thursday earlier this week, they took stool samples and got blood work done at [facility] over at [facility] and we will attempt to get those results. The patient states overall he has been fairly healthy up until March. He has never had an EGD or a colonoscopy done at this time. ALLERGIES: No known drug allergies. MEDICATIONS FROM HOME: Have been Eliquis, aspirin and losartan. PAST MEDICAL HISTORY: Hypertension and atrial fib. PAST SURGICAL HISTORY: Negative. FAMILY HISTORY: Negative for any GI or female cancers. His mother was adopted. SOCIAL HISTORY: Socially drinking in the past, but nothing heavy. Negative for any tobacco or illegal drug use. REVIEW OF SYSTEMS: Twelve-point review [place] [address] CONSULTATION Name: JOSE MARIA MORRIS Room: [address] IN [facility]#: [id number] Admission: 06/14/19 Attend Phys: Vivek Bolaños MD Discharge: 06/17/19 Date of : 36 Report #: [id number] except what is mentioned in the HPI. PHYSICAL EXAMINATION: VITAL SIGNS: 36.6, pulse 103, respirations 23, blood pressure 116/44. HEART: Irregular rate and rhythm. LUNGS: Diminished. ABDOMEN: Soft, positive bowel sounds in all 4 quadrants with tenderness noted and ascitic wave noted as well. LABORATORY DATA: Hemoglobin is 7.6, white count is 19.5, platelets 187. Total bili 2.3, alk phos 394, ALT 59, AST is 75. PT is 18, INR 1.8, BUN is 88, creatinine is 3.7. His GFR is 16. AFP was 3.2. Acute hepatitis panel was all negative. CEA is pending. Currently, his MELD score is 29. Chest x-ray showed left pleural effusion. CT scan of the abdomen and pelvis showed confirming the bilateral pleural effusions, numerous nodular masses throughout the liver consistent with metastatic lesions. Also, the liver has very nodular surface in appearance with ascitic fluid noted. Numerous gallbladder wall calcifications are present with small gallstones. No definite bile duct enlargement. Prominent lymph nodes noted in the head of the pancreas. Diffuse soft tissue edema consistent with anasarca. The proximal transverse is poorly defined soft tissue mass measuring about 5 cm in diameter, closest to the proximal transverse colon and hepatic flexure. IMPRESSION: 1. Hematemesis. 2. Weight loss. 3. Elevated liver function tests. 4. Acute anemia. 5. Leukocytosis. 6. Change in bowel habits to diarrhea. 7. Abnormal CT cirrhosis with ascites and a mass noted in the transverse colon. PLANS: 1. EGD today. 2. We will consider a paracentesis for further diagnostic purposes. 3. We will consider a colonoscopy to evaluate the mass in his transverse colon. 4. We will obtain labs and stool samples that were done at [facility] at [place]. 5. Further recommendations to be made once the procedure has been performed. Thank you for allowing us to participate in this patient's care. Please do not hesitate to call with any questions in regard to this consult. <ELECTRONICALLY SIGNED> By: Mirian Salazar MD 07/01/19 1447 1147 [id number] Salazar MD /nt
== END 2019-06-17 13:56 | DRG 441 ==
LOC: M.ERS 20:15 → M.TBA-ER 23:26 → M.ICU 23:26
PROVIDERS: Emergency Medicine; Internal Medicine Cardiovascular Disease; Internal Medicine Nephrology; ADMIT Internal Medicine
PROC: 02HV33Z Insertion of Infusion Device into Superior Vena Cava, Percutaneous Approach (ICD-10-PCS; principal; 2019-06-15)
PROC: 0DB68ZX Excision of Stomach, Via Natural or Artificial Opening Endoscopic, Diagnostic (ICD-10-PCS; 2019-06-16)
PROC: 0DB58ZX Excision of Esophagus, Via Natural or Artificial Opening Endoscopic, Diagnostic (ICD-10-PCS; 2019-06-16)
DX: K72.00 Acute and subacute hepatic failure without coma (principal); K29.71 Gastritis, unspecified, with bleeding; N17.0 Acute kidney failure with tubular necrosis; E43 Unspecified severe protein-calorie malnutrition; J96.01 Acute respiratory failure with hypoxia; I21.4 Non-ST elevation (NSTEMI) myocardial infarction; J18.9 Pneumonia, unspecified organism; K22.11 Ulcer of esophagus with bleeding; R65.11 Systemic inflammatory response syndrome (SIRS) of non-infectious origin with acute organ dysfunction; E87.2 Acidosis; I48.92 Unspecified atrial flutter; K92.0 Hematemesis; E86.0 Dehydration; I95.9 Hypotension, unspecified; I48.0 Paroxysmal atrial fibrillation; D64.9 Anemia, unspecified; I25.10 Atherosclerotic heart disease of native coronary artery without angina pectoris; E86.9 Volume depletion, unspecified; E88.09 Other disorders of plasma-protein metabolism, not elsewhere classified; I12.9 Hypertensive chronic kidney disease with stage 1 through stage 4 chronic kidney disease, or unspecified chronic kidney disease; D72.829 Elevated white blood cell count, unspecified; Z66 Do not resuscitate; K74.60 Unspecified cirrhosis of liver; K21.0 Gastro-esophageal reflux disease with esophagitis; Z87.891 Personal history of nicotine dependence; I25.2 Old myocardial infarction; Z68.24 Body mass index [BMI] 24.0-24.9, adult; N18.2 Chronic kidney disease, stage 2 (mild)